=== PATIENT | female | born 1995 | race African-American/Black ===

== ENCOUNTER 2024-01-28 18:08 | Emergency (ER) | payer OTHER, SELFPAY ==
[2024-01-28 18:14] VITALS: BP 111/72
[2024-01-28 18:21] VITALS: BMI 18.9
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
[2024-01-28] MEDS: MOTRIN 600 MG PO (19:20)
[2024-01-28] MEDS: TYLENOL 650 MG PO (19:21)
[2024-01-28 19:24] VITALS: BP 129/84
== END 2024-01-28 19:41 ==
LOC: EMR 18:08
PROVIDERS: EMERGENCY PHYSICIAN Student in an Organized Health Care Education/Training Program
DX: S80.01XA Contusion of right knee, initial encounter (principal); W01.0XXA Fall on same level from slipping, tripping and stumbling without subsequent striking against object, initial encounter; Z86.73 Personal history of transient ischemic attack (TIA), and cerebral infarction without residual deficits
CPT/HCPCS: 99283; 73564